=== PATIENT | female | born 1955 | race Caucasian/White ===

== ENCOUNTER 2016-11-08 16:09 | Emergency (ER) | payer MEDICARE ==
[~2016-11-08] VITALS: Ht 154.9 cm; Wt 43.4 kg
[~2016-11-08 16:09] MED LIST: CYCL-36 PO; PERC5TAB12 PO
[2016-11-08 16:14] VITALS: BP 139/85; PULSE 82; RESP 18; TEMP 98.4; O2SAT 98
[2016-11-08] MEDS ORDERED: SIMV40TA PO (16:32)
[2016-11-08] MEDS ORDERED: ASPI81CH CHEW (16:32)
--- NOTE | 2016-11-08 17:09 | PD ---
HPI Chief Complaint: Head Injury Time Seen by Provider: 17:07 Travel History International Travel<30 days: No Contact w/Intl Traveler<30days: No Traveled to known affect area: No History of Present Illness HPI 61-year-old female patient presents to the ER today because she states that she was trying to move the TV with her and the TV and shelf fell on her head , she appeared days according to the and since then has been having mild confusion. She complains of head pain. She denies any vomiting or any other injuries. denies any loss of consciousness. Modifying Factors: None Associated Signs & Symptoms: Head injury, confusion Risk Factors: Elderly PFSH Past Medical History Hx Anticoagulant Therapy: Yes High Cholesterol: Yes Diabetes: No Diminished Hearing: No Musculoskeletal: Yes (HX BACK PAIN) Respiratory: Yes Ulcer: Yes ("ulcer of the esophagus") ?: Not Menopausal: Yes : 1 Para: 1 Miscarriage: 0 : 0 Past Surgical History Eye Surgery: Yes ("lasik both eyes") Oral Surgery: Yes ("lower dental implants") Thoracic Surgery: Yes ("breast implants") Other Surgery: Yes (BREAST AUGMENTATION) Social History Alcohol Use: No Tobacco Use: No Substance Use: No (denied) Allergies-Medications (Allergen,Severity, Reaction): Coded Allergies: Adhesives (Verified Adverse Reaction, Severe, blisters, 11/08/16) Reported Meds & Prescriptions Reported Meds & Active Scripts Active Reported Simvastatin 40 Mg Tab Unknown Dose PO HS Aspirin 81 Mg Chew Unknown Dose CHEW DAILY Review of Systems ROS Limitations: Altered Mental Status Physical Exam Narrative GENERAL: Well-developed elderly white female patient who is currently in mild distress. Awake, alert, mildly disoriented. SKIN: Focused skin assessment warm/dry. HEAD: Atraumatic. Normocephalic. EYES: Pupils equal and round. No scleral icterus. No injection or drainage. ENT: No nasal bleeding or discharge. Mucous membranes pink and moist. NECK: Trachea midline. No JVD. CARDIOVASCULAR: Regular rate and rhythm. No murmur appreciated. RESPIRATORY: No accessory muscle use. Clear to auscultation. Breath sounds equal bilaterally. GASTROINTESTINAL: Abdomen soft, non-tender, nondistended. Hepatic and splenic margins not palpable. BACK: No CVA tenderness. No rash. Mild tenderness on palpation of the lower thoracic and L1 region on palpation of the spine without obvious deformities. MUSCULOSKELETAL: No obvious deformities. No clubbing. No cyanosis. No edema. NEUROLOGICAL: Awake and alert. No obvious cranial nerve deficits. Motor grossly within normal limits. Normal speech. PSYCHIATRIC: Appropriate mood and affect; insight and judgment normal. Data Data Last Documented VS Vital Signs Date Time Temp Pulse Resp B/P Pulse Ox O2 Delivery O2 Flow Rate FiO2 11/08/16 16:14 98.4 82 18 139/[address] Brain W/O Iv Contrast(Rout) (11/08/16 17:01) Ct Thor Spine W/O Contrast (11/08/16 18:08) Ct Lumb Spine W/O Contrast (11/08/16 18:08) Acetamin-Hydrocod 325-5 Mg ([place] 5-325 (11/08/16 18:15) MDM Medical Decision Making Medical Screen Exam Complete: Yes Emergency Medical Condition: Yes Medical Record Reviewed: Yes Interpretation(s) Last [address] 11/08/16 1701 Signed Impressions: Service Date/Time: Tuesday, November 08, 2016 17:11 - CONCLUSION: Unremarkable study. Lesley Simon MD Differential Diagnosis Head injury, disorientationconcussion versus intracranial injuries Narrative Course CT of the brain did not show any signs of acute intracranial injuries. Patient was able to ambulate in the ER and appeared less confused on reevaluation at 6: 50 PM. However, she complained of more of a lower back pain which she states started after the injury. She has no focal neurological deficits. CAT scan was ordered of the T and L-spine for further evaluation. Physician Communication Physician Communication Case is discussed with Dr. Wilde pending CT of the spine. Disposition based on CAT scans. Diagnosis Primary Impression: Concussion Condition: Stable Xena Pickering MD Nov 08, 2016 17:09
--- NOTE | 2016-11-08 17:38 | RADRPT ---
EXAM DATE/TIME: 11/08/2016 17:11 [facility] COMPARISON: No previous studies available for comparison. INDICATIONS : Shelf fell on head. RADIATION DOSE: 61.03 CTDIvol (mGy) MEDICAL HISTORY : Anticoagulant therapy. SURGICAL HISTORY : None. ENCOUNTER: Initial ACUITY: 1 day PAIN SCALE: 4/10 LOCATION: Left cranial TECHNIQUE: Multiple contiguous axial images were obtained of the head. Using automated exposure control and adj ustment of the mA and/or kV according to patient size, radiation dose was kept as low as reasonably a chievable to obtain optimal diagnostic quality images. DICOM format image data is available electro nically for review and comparison. FINDINGS: There is no evidence for intracranial hemorrhage, mass effect, mass lesions, edema, or extra-axial fl uid collections. The visualized bony structures appear intact. The ventricles are normal size for t he patient's age. There are no signs of acute infarction for technique. CONCLUSION: Unremarkable study. Lesley Simon MD on November 08, 2016 at 17:36 Board Certified Radiologist. This report was verified electronically.
[2016-11-08] MEDS ORDERED: ACETAMINOPHEN/HYDROcodone 325 MG/5 MG TAB PO ONE (18:15)
--- NOTE | 2016-11-08 19:35 | RADRPT ---
EXAM DATE/TIME: 11/08/2016 18:14 [facility] COMPARISON: No previous studies available for comparison. INDICATIONS : Shelf fell on patient. Back pain. RADIATION DOSE: 10.86 CTDIvol (mGy) ; Combined studies - Thoracic Spine/Lumbar Spine MEDICAL HISTORY : Anticoagulant therapy. SURGICAL HISTORY : Fusion, lumbar. Fusion, thoracic. ENCOUNTER: Initial ACUITY: 1 day PAIN SCALE: 8/10 LOCATION: spine TECHNIQUE: Volumetric scanning of the thoracic spine was performed. Multiplanar reconstructions in the sagittal , coronal and oblique axial planes were performed. Using automated exposure control and adjustment o f the mA and/or kV according to patient size, radiation dose was kept as low as reasonably achievable to obtain optimal diagnostic quality images. DICOM format image data is available electronically f or review and comparison. FINDINGS: No significant compression deformities are seen. Slight degenerative changes are seen within the disc space and facets. There is inspissated mucus within the trachea. T1-T2: No appreciable compromise to the thecal sac, spinal cord, or the exiting nerve roots are seen. The neural foramina are grossly patent bilaterally. T2-T3: No appreciable compromise to the thecal sac, spinal cord, or the exiting nerve roots are seen. The neural foramina are grossly patent bilaterally. T3-T4: No appreciable compromise to the thecal sac, spinal cord, or the exiting nerve roots are seen. The neural foramina are grossly patent bilaterally. T4-T5: No appreciable compromise to the thecal sac, spinal cord, or the exiting nerve roots are seen. The neural foramina are grossly patent bilaterally. T5-T6: No appreciable compromise to the thecal sac, spinal cord, or the exiting nerve roots are seen. The neural foramina are grossly patent bilaterally. T6-T7: No appreciable compromise to the thecal sac, spinal cord, or the exiting nerve roots are seen. The neural foramina are grossly patent bilaterally. T7-T8: No appreciable compromise to the thecal sac, spinal cord, or the exiting nerve roots are seen. The neural foramina are grossly patent bilaterally. T8-T9: No appreciable compromise to the thecal sac, spinal cord, or the exiting nerve roots are seen. The neural foramina are grossly patent bilaterally. T9-T10: No appreciable compromise to the thecal sac, spinal cord, or the exiting nerve roots are se en. The neural foramina are grossly patent bilaterally. T10-T11: No appreciable compromise to the thecal sac, spinal cord, or the exiting nerve roots are se en. The neural foramina are grossly patent bilaterally. T11-T12: No appreciable compromise to the thecal sac, spinal cord, or the exiting nerve roots are se en. The neural foramina are grossly patent bilaterally. T12-L1: No appreciable compromise to the thecal sac, spinal cord, or the exiting nerve roots are se en. The neural foramina are grossly patent bilaterally. CONCLUSION: Slight degenerative changes without any significant compromise to the thecal sac or t he exiting nerve roots. Lesley Simon MD on November 08, 2016 at 19:28 Board Certified Radiologist. This report was verified electronically.
--- NOTE | 2016-11-08 19:40 | PD ---
Data Data Last Documented VS Vital Signs Date Time Temp Pulse Resp B/P Pulse Ox O2 Delivery O2 Flow Rate FiO2 11/08/16 16:14 98.4 82 18 139/[address] Brain W/O Iv Contrast(Rout) (11/08/16 17:01) Ct Thor Spine W/O Contrast (11/08/16 18:08) Ct Lumb Spine W/O Contrast (11/08/16 18:08) Acetamin-Hydrocod 325-5 Mg ([place] 5-325 (11/08/16 18:15) MDM Supervised Visit with [facility]: Yes Interpretation(s) CT head negative CT thoracic spine degenerative changes without any significant, negative CT lumbar spine: Negative. Narrative Course 61-year-old woman presents to emergency department with head pain and back pain after a shelf and TV fell on her. She was seen by Dr. Smith, and cyanotic with a follow-up of the results of CT of her T and L-spine which is still pending. Diagnosis Primary Impression: Concussion Additional Instruction: The case acetaminophen or ibuprofen as needed for pain. Continue normal activity. Follow-up with primary doctor in the next 2-4 days. Return to the emergency department if worsening pain, any numbness or tingling, negative walking, or any other new or worsening symptoms. Med/Other Pt SpecificInfo: No Change to Meds Disposition: 01 DISCHARGE HOME Condition: Stable Kush Wilde MD Nov 08, 2016 19:40
--- NOTE | 2016-11-08 19:40 | RADRPT ---
EXAM DATE/TIME: 11/08/2016 18:14 [facility] COMPARISON: No previous studies available for comparison. INDICATIONS : Shelf fell on patient. Back pain. RADIATION DOSE: 10.86 CTDIvol (mGy) ; Combined studies - Thoracic Spine/Lumbar Spine MEDICAL HISTORY : Anticoagulant therapy. SURGICAL HISTORY : Fusion, lumbar. Fusion, thoracic. ENCOUNTER: Initial ACUITY: 1 day PAIN SCALE: 8/10 LOCATION: spine TECHNIQUE: Volumetric scanning of the lumbar spine was performed. Multiplanar reconstructions in the sagittal, coronal and oblique axial planes were performed. Using automated exposure control and adjustment of the mA and/or kV according to patient size, radiation dose was kept as low as reasonab ly achievable to obtain optimal diagnostic quality images. DICOM format image data is available johnathon ctronically for review and comparison. FINDINGS: No significant compression deformities, spondylolysis, or spondylolisthesis is seen. There is a tiny 2 mm left renal stone. L1-L2: No appreciable compromise to the thecal sac, or the exiting nerve roots is seen. The neural foramina and lateral recesses are patent bilaterally. L2-L3: No appreciable compromise to the thecal sac, or the exiting nerve roots is seen. The neural foramina and lateral recesses are patent bilaterally L3-L4: No appreciable compromise to the thecal sac, or the exiting nerve roots is seen. The neural foramina and lateral recesses are patent bilaterally L4-L5: Slight degenerative changes are seen within the disc space and facets. Slight bulging disc and hypertrophic changes are seen with indentation on the thecal sac and no significant compromise to th e thecal sac or the exiting nerve roots. L5-S1: Slight bulging disc and hypertrophic changes are seen with indentation on the thecal sac an d no significant compromise to the thecal sac or the exiting nerve roots. CONCLUSION: Slight degenerative changes without any significant compromise to the thecal sac or t he exiting nerve roots. Lesley Simon MD on November 08, 2016 at 19:34 Board Certified Radiologist. This report was verified electronically.
== END 2016-11-08 19:54 | disposition home or self-care (01) ==
LOC: PHEFT 16:09
DX: S06.0X0A Concussion without loss of consciousness, initial encounter (principal); M54.5 Low back pain; Z79.01 Long term (current) use of anticoagulants; E78.00 Pure hypercholesterolemia, unspecified; Z87.39 Personal history of other diseases of the musculoskeletal system and connective tissue; Z87.09 Personal history of other diseases of the respiratory system; Z87.19 Personal history of other diseases of the digestive system; W20.8XXA Other cause of strike by thrown, projected or falling object, initial encounter
CPT/HCPCS: 70450; 72128; 72131